=== PATIENT | female | born 1955 | race Caucasian/White ===

== ENCOUNTER → 2017-02-14 | Outpatient (CLI) | payer OTHER ==
[~2017-02-14] MED LIST: DICL50TA4 PO; GABA600T2 PO; HYDR12.53 PO; OXYC-307 PO; OXYC80TA25 PO; POTASIUM PO; PROP40TA PO
== END ==
LOC: CFH 08:15
PROVIDERS: ATTEND Obstetrics & Gynecology
DX: D25.9 Leiomyoma of uterus, unspecified (principal); N93.8 Other specified abnormal uterine and vaginal bleeding; N92.6 Irregular menstruation, unspecified; N92.0 Excessive and frequent menstruation with regular cycle; Z90.721 Acquired absence of ovaries, unilateral
CPT/HCPCS: 76830

== ENCOUNTER 2017-02-24 05:53 | Day surgery (SDC) | payer OTHER ==
[2017-02-23 09:16] LABS: BASOPHILS # (AUTO) 0.03 x10^3/uL (0-0.1); BASOPHILS % (AUTO) 1 % (0-1); EOSINOPHILS # (AUTO) 0.36 x10^3/uL (0-0.4); EOSINOPHILS % (AUTO) 7 % (1-7); LYMPHOCYTES # (AUTO) 1.92 x10^3/uL (1-3.4); LYMPHOCYTES % (AUTO) 39 % (22-44); MD NO; MEAN CORPUSCULAR HEMOGLOBIN 30.2 pg (27.0-34.8); MEAN CORPUSCULAR HGB CONC 33.8 g/dL (32.4-35.8); MEAN CORPUSCULAR VOLUME 89.5 fL (80-100); MEAN PLATELET VOLUME 8.7 fL (7.4-10.4); MONOCYTES # (AUTO) 0.52 x10^3/uL (0.2-0.8); MONOCYTES % (AUTO) 11 % (2-9); NEUTROPHILS # (AUTO) 2.05 x10^3/uL (1.8-6.8); NEUTROPHILS % (AUTO) 42 % (42-75); PLATELET COUNT 224 x10^3/uL (130-400); RED BLOOD COUNT 4.73 x10^6/uL (3.82-5.3); RED CELL DISTRIBUTION WIDTH 13.3 % (9.6-15.2)
[2017-02-23 09:28] LABS: ALANINE AMINOTRANSFERASE 39 U/L (12-78); ALBUMIN 3.7 g/dL (3.4-5.0); ANION GAP 3 mmol/L (5-15); CALCIUM 10.6 mg/dL (8.5-10.1); CHLORIDE 104 mmol/L (98-107); CREATININE 0.75 mg/dL (0.55-1.02)
[2017-02-23 09:31] LABS: ALKALINE PHOSPHATASE 81 U/L (45-117); BILIRUBIN,TOTAL 0.4 mg/dL (0.2-1.0); TOTAL PROTEIN 8.1 g/dL (6.4-8.2)
[2017-02-23 09:43] LABS: MICROSCOPIC AUTO
[2017-02-23 09:50] LABS: CULTURE INDICATED? YES
[~2017-02-24] VITALS: Ht 162.6 cm; Wt 74.6 kg
[~2017-02-24 05:53] MED LIST changes: +DULO60CA55 PO; +GABA600T14 PO; +HYDR25TA6 PO; +OXYC1TAB9 PO; +TIZA4TAB PO
[2017-02-24] MEDS ORDERED: LACTATED RINGERS 1,000 ML IV SCH (06:34)
[2017-02-24 06:35] VITALS: BP 122/79
[2017-02-24] MEDS ORDERED: BUPIVACAINE/PF 0.25% ONE (06:51)
[2017-02-24] MEDS ORDERED: VASOPRESSIN 20 UNIT/ML, 1ML ONE (06:51)
[2017-02-24] MEDS ORDERED: FENTANYL PF 100 MCG/2ML ONE (07:18)
[2017-02-24] MEDS ORDERED: MIDAZOLAM 1 MG/ML, 2ML ONE (07:18)
[2017-02-24] MEDS ORDERED: KETOROLAC 30 MG/1 ML ONE (07:23)
[2017-02-24] MEDS ORDERED: BUPIVACAINE/PF 0.25% INFIL ONE (07:47)
[2017-02-24] MEDS ORDERED: VASOPRESSIN 20 UNIT/ML, 1ML IM ONE (07:48)
[2017-02-24] MEDS ORDERED: ACETAMINOPHEN 325 MG TABLET PO PRN (08:00)
[2017-02-24] MEDS ORDERED: LABETALOL 5MG/ML, 20ML IV PRN (08:00)
[2017-02-24] MEDS ORDERED: PROMETHAZINE 25 MG/ML, 1ML IV PRN (08:00)
[2017-02-24] MEDS ORDERED: ONDANSETRON 2MG/ML, 2ML IVPush PRN (08:00)
[2017-02-24] MEDS ORDERED: MIDAZOLAM 1 MG/ML, 2ML IV PRN (08:00)
[2017-02-24] MEDS ORDERED: MEPERIDINE/PF 25MG/0.5ML IVPush PRN (08:00)
[2017-02-24] MEDS ORDERED: ALBUTEROL SULFATE 2.5 MG/3 ML NPPB PRN (08:00)
[2017-02-24] MEDS ORDERED: hydrALAzine 20 MG/ML, 1ML IV PRN (08:00)
[2017-02-24] MEDS ORDERED: FENTANYL PF 100 MCG/2ML IV PRN (08:00)
[2017-02-24] MEDS ORDERED: HYDROmorphone 1 MG/ML, 1ML IV PRN (08:00)
[2017-02-24] MEDS ORDERED: OXYcodone 5 MG/5 ML ORAL.SOL UDC PO PRN (08:00)
[2017-02-24] MEDS ORDERED: ONDANSETRON 2MG/ML, 2ML ONE ×2 (08:23)
[2017-02-24] MEDS ORDERED: DEXAMETHASONE 4 MG/ML, 1ML ONE ×2 (08:23)
[2017-02-24] MEDS ORDERED: PROPOFOL 10 MG/ML, 20ML ONE (08:23)
== END 2017-02-24 11:25 ==
LOC: OUT 05:53
PROVIDERS: ATTEND Obstetrics & Gynecology
DX: N93.8 Other specified abnormal uterine and vaginal bleeding (principal); N84.0 Polyp of corpus uteri; I10 Essential (primary) hypertension; E78.00 Pure hypercholesterolemia, unspecified; Z88.1 Allergy status to other antibiotic agents; Z88.5 Allergy status to narcotic agent
CPT/HCPCS: 36415; 58563; 71046; 80053; 81001; 85025; 87086; 88305; 93005; J1100; J1885; J2250; J2405; J2704; J3010; J3490; J7120

== ENCOUNTER → 2017-07-29 | Outpatient (CLI) | payer OTHER ==
[~2017-07-29] MED LIST changes: +OXYC-432 PO; -OXYC1TAB9 PO
== END ==
LOC: CFH 11:53
PROVIDERS: ATTEND Physical Medicine & Rehabilitation
DX: Z12.31 Encounter for screening mammogram for malignant neoplasm of breast (principal); M96.1 Postlaminectomy syndrome, not elsewhere classified; M54.2 Cervicalgia
CPT/HCPCS: 72050; 77067

== ENCOUNTER → 2017-10-21 | Outpatient (CLI) | payer OTHER | END | disposition home or self-care (01) | LOC: CFH 16:44 | PROVIDERS: ATTEND Family Medicine | DX: M47.897 Other spondylosis, lumbosacral region (principal); M47.894 Other spondylosis, thoracic region; Z88.2 Allergy status to sulfonamides | CPT/HCPCS: 72072; 72110 ==

== ENCOUNTER → 2018-03-01 | Outpatient (CLI) | payer OTHER ==
[~2018-03-01] MED LIST changes: -GABA600T2 PO; +GABA600T7 PO; +HYDR12.517 PO; -HYDR12.53 PO
== END | disposition home or self-care (01) ==
LOC: RAD 06:50
PROVIDERS: ATTEND Nurse Practitioner
DX: M48.02 Spinal stenosis, cervical region (principal); M54.12 Radiculopathy, cervical region
CPT/HCPCS: 72141

== ENCOUNTER → 2019-03-19 | Outpatient (CLI) | payer OTHER ==
[~2019-03-19] MED LIST changes: -DULO60CA55 PO; +DULO60CA56 PO; -TIZA4TAB PO; +TIZA4TAB2 PO
== END | disposition home or self-care (01) ==
LOC: RAD 11:02
PROVIDERS: ATTEND Obstetrics & Gynecology
DX: D35.1 Benign neoplasm of parathyroid gland (principal); E83.52 Hypercalcemia; R79.89 Other specified abnormal findings of blood chemistry
CPT/HCPCS: 78070; A9500

== ENCOUNTER 2019-04-20 10:33 | Outpatient (CLI) | payer OTHER ==
[2019-04-20] MEDS ORDERED: PROG200C10 PO (11:37)
[2019-04-20] MEDS ORDERED: IMITREX (11:37)
[2019-04-20] MEDS ORDERED: ESTRADIOL PO (11:37)
[2019-04-20 11:54] LABS: CHLORIDE 107 mmol/L (98-107)
[2019-04-20 12:00] LABS: ALANINE AMINOTRANSFERASE 30 U/L (12-78); ALBUMIN 3.1 g/dL (3.4-5.0); ALKALINE PHOSPHATASE 75 U/L (45-117); ANION GAP 5 mmol/L (5-15); BILIRUBIN,TOTAL 0.3 mg/dL (0.2-1.0); CALCIUM 9.9 mg/dL (8.5-10.1); CREATININE 0.66 mg/dL (0.55-1.02); TOTAL PROTEIN 7.3 g/dL (6.4-8.2)
== END 2019-04-20 23:59 | disposition home or self-care (01) ==
LOC: STAR 10:33
PROVIDERS: ATTEND Surgery
DX: Z01.818 Encounter for other preprocedural examination (principal); E21.3 Hyperparathyroidism, unspecified; D36.7 Benign neoplasm of other specified sites
CPT/HCPCS: 36415; 80053; 93005

== ENCOUNTER 2019-07-25 11:11 | Day surgery (SDC) | payer OTHER ==
[~2019-07-25] VITALS: Ht 162.6 cm; Wt 77.0 kg
[~2019-07-25 11:11] MED LIST changes: +ESTRADIOL PO; +IMITREX; +MEDR10TA PO; +PROG200C10 PO
[2019-07-25] MEDS ORDERED: LACTATED RINGERS 1,000 ML IV SCH (11:54)
[2019-07-25 12:00] VITALS: BP 157/83
[2019-07-25] MEDS ORDERED: CHLORHEXIDINE 15 ML UDC MM ONE (12:00)
[2019-07-25] MEDS ORDERED: MEDR10TA3 PO (12:00)
[2019-07-25 12:39] LABS: ALBUMIN 3.5 g/dL (3.4-5.0); ANION GAP 5 mmol/L (5-15); CALCIUM 10.8 mg/dL (8.5-10.1); CHLORIDE 106 mmol/L (98-107)
[2019-07-25 12:56] LABS: ALANINE AMINOTRANSFERASE 29 U/L (12-78); ALKALINE PHOSPHATASE 82 U/L (45-117); BILIRUBIN,TOTAL 0.4 mg/dL (0.2-1.0); CREATININE 0.71 mg/dL (0.55-1.02); TOTAL PROTEIN 8.5 g/dL (6.4-8.2)
[2019-07-25] MEDS ORDERED: PROMETHAZINE 25 MG/ML, 1ML IVPush PRN (13:00)
[2019-07-25] MEDS ORDERED: HYDROcodone/APAP 7.5-325MG/15ML UDC PO PRN (13:00)
[2019-07-25] MEDS ORDERED: OXYcodone 5 MG/5 ML ORAL.SOL UDC PO PRN (13:00)
[2019-07-25] MEDS ORDERED: ONDANSETRON 2MG/ML, 2ML ONE (13:03)
[2019-07-25] MEDS ORDERED: MIDAZOLAM 1 MG/ML, 2ML ONE (13:03)
[2019-07-25] MEDS ORDERED: ROCURONIUM 10MG/ML,5ML ONE (13:03)
[2019-07-25] MEDS ORDERED: NEOSTIGMINE 1 MG/ML, 10ML ONE (13:03)
[2019-07-25] MEDS ORDERED: CEFAZOLIN 1,000 MG ONE (13:03)
[2019-07-25] MEDS ORDERED: DEXAMETHASONE 4 MG/ML, 1ML ONE (13:03)
[2019-07-25] MEDS ORDERED: FENTANYL PF 100 MCG/2ML ONE ×4 (13:03→16:32)
[2019-07-25] MEDS ORDERED: PROPOFOL 10 MG/ML, 20ML ONE (13:03)
[2019-07-25] MEDS ORDERED: SUCCINYLCHOLINE 20 MG/ML, 10ML ONE (13:03)
[2019-07-25] MEDS ORDERED: GLYCOPYRROLATE 0.2MG/1ML, 5ML ONE (13:03)
[2019-07-25] MEDS ORDERED: SCOPOLAMINE 1MG PATCH TD ONE (14:04)
[2019-07-25] MEDS ORDERED: SUGAMMADEX 200 MG/2 ML IVPush ONE (14:09)
[2019-07-25] MEDS ORDERED: SCOPOLAMINE 1MG PATCH TD SCH (14:30)
[2019-07-25] MEDS ORDERED: BUPIVACAINE/PF-EPI 0.5% 1:200K ONE (14:36)
[2019-07-25] MEDS ORDERED: METHYLENE BLUE 10 MG/ML 10ML ONE (14:42)
[2019-07-25] MEDS ORDERED: OXYcodone 5 MG/5 ML ORAL.SOL UDC ONE (15:34)
[2019-07-25] MEDS: FENTANYL PF 100 MCG/2ML IV PRN ×5 (15:36→16:36)
[2019-07-25] MEDS ORDERED: morphine SULFATE 10 MG/ML, 1ML ONE ×2 (15:56→16:32)
[2019-07-25] MEDS: morphine SULFATE 10 MG/ML, 1ML IVPush PRN ×3 (15:58→16:38)
[2019-07-25] MEDS ORDERED: HYDROmorphone 2 MG/ML, 1ML ONE (16:18)
[2019-07-25 16:24] LABS: CALCIUM 9.9 mg/dL (8.5-10.1)
[2019-07-25 16:25] LABS: IOPTH BASELINE 92 pg/mL; SAMPLE 5 %DROP IOPTH 54 %
[2019-07-25] MEDS: HYDROmorphone 1 MG/ML, 1ML INJ IVPush PRN ×4 (16:25→16:42)
== END 2019-07-25 18:10 | disposition home or self-care (01) ==
LOC: OUT 11:11
PROVIDERS: ATTEND Surgery
DX: E21.0 Primary hyperparathyroidism (principal); Z11.59 Encounter for screening for other viral diseases; D35.1 Benign neoplasm of parathyroid gland; I10 Essential (primary) hypertension; F32.9 Major depressive disorder, single episode, unspecified; M19.90 Unspecified osteoarthritis, unspecified site; Z88.2 Allergy status to sulfonamides; Z88.8 Allergy status to other drugs, medicaments and biological substances; Z88.1 Allergy status to other antibiotic agents; Z88.5 Allergy status to narcotic agent; Z79.899 Other long term (current) drug therapy; Z98.51 Tubal ligation status; Z72.89 Other problems related to lifestyle; Z91.018 Allergy to other foods; Z82.49 Family history of ischemic heart disease and other diseases of the circulatory system
CPT/HCPCS: 36415; 60500; 80053; 82310; 83970; 87635; 88305; 88331; A9500; C1760; J0330; J0690; J1100; J1170; J2250; J2270; J2405; J2704; J2710; J3010; J7120; Q9968; U0001; 78070